=== PATIENT | female | born 1965 | race Hispanic/Latino ===

== ENCOUNTER 2017-12-19 11:02 | Emergency (ER) | payer MEDICAID ==
[2017-12-19] MEDS ORDERED: Sodium Chloride 0.9% 1,000 ML IV STA (12:01)
[2017-12-19 12:02] VITALS: RESP 18
--- NOTE | 2017-12-19 12:02 | ED PDOC ---
Arrival/HPI - General Chief Complaint: Fever Time Seen by Provider: 12/19/17 11:09 Historian: Patient, Spouse - History of Present Illness Narrative History of Present Illness (Text): you were treated in the ED today for hx of diabetes, hypertension, cholesterol, with dry cough and associated fever/difficulty breathing and chest pain with cough but otherwise without any nausea/vomiting/headache/dizziness/abdomen pain/ numbness/tingling/loss of limb function/pain with urination/travel/prior blood clots/prior cancer/hormonal use. 12/19/17 11:59 Past Medical History - Provider Review Nursing Documentation Reviewed: Yes - Travel History Have you recently traveled outside [place] w/in the past 3 mons?: No - Cardiac Hx Cardiac Disorders: Yes Hx Hypertension: Yes - Pulmonary Hx Respiratory Disorders: No - Neurological Hx Neurological Disorder: No - HEENT Hx HEENT Disorder: No - Renal Hx Renal Disorder: No - Endocrine/Metabolic Hx Endocrine Disorders: Yes Hx Diabetes Mellitus Type 2: Yes - Hematological/Oncological Hx Blood Disorders: No - Integumentary Hx Dermatological Disorder: No - Musculoskeletal/Rheumatological Hx Musculoskeletal Disorders: No - Gastrointestinal Hx Gastrointestinal Disorders: No - Genitourinary/Gynecological Hx Genitourinary Disorders: No - Psychiatric Hx Psychophysiologic Disorder: No Hx Substance Use: No - Surgical History Hx Cholecystectomy: Yes Family/Social History - Physician Review Nursing Documentation Reviewed: Yes Family/Social History: No Known Family HX Smoking Status: Never Smoked Hx Alcohol Use: No Hx Substance Use: No Allergies/Home Meds Allergies/Adverse Reactions: Allergies Penicillins Allergy (Verified 12/19/17 11:10) RASH Home Medications: Home Meds Medication Instructions Recorded Confirmed Colesevelam HCl [Welchol] 2 tab PO BID 12/19/17 12/19/17 Glipizide [Glipizide Xl] 5 mg PO BID 12/19/17 12/19/17 Lisinopril [Zestril] 2.5 mg PO DAILY 12/19/17 12/19/17 SITagliptin [Januvia] 50 mg PO DAILY 12/19/17 12/19/17 Valsartan/Hydrochlorothiazide 1 tab PO DAILY 12/19/17 12/19/17 [Valsartan-Hctz 160-25 mg Tab] Review of Systems - Review of Systems Constitutional: Fevers Eyes: Normal ENT: Normal Respiratory: SOB, Cough Cardiovascular: Chest Pain Gastrointestinal: Normal Genitourinary Female: Normal Musculoskeletal: Normal Skin: Normal Neurological: Normal Endocrine: Normal Hemo/Lymphatic: Normal Psychiatric: Normal Physical Exam Vital Signs Reviewed: Yes Vital Signs Temp Pulse Resp BP Pulse Ox 12/19/17 13:35 86 18 145/68 95 12/19/17 12:01 99.5 F 94 H 18 148/71 95 12/19/17 11:13 99.9 F H 101 H 16 152/79 H 93 L Temperature: Afebrile Blood Pressure: Hypertensive Pulse: Regular Appearance: Positive for: Well-Appearing, Non-Toxic, Comfortable Pain Distress: None Mental Status: Positive for: Alert and Oriented X 3 - Systems Exam Head: Present: Atraumatic, Normocephalic Pupils: Present: PERRL Extroacular Muscles: Present: EOMI Conjunctiva: Present: Normal Ears: Present: Normal Mouth: Present: Moist Mucous Membranes Pharnyx: Present: Normal Nose (External): Present: Atraumatic Nose (Internal): Present: Normal Inspection Neck: Present: Normal Range of Motion Respiratory/Chest: Present: Clear to Auscultation, Good Air Exchange Cardiovascular: Present: Regular Rate and Rhythm Abdomen: No: Tenderness, Distention, Normal Bowel Sounds, Peritoneal Signs, Rebound, Guarding, McBurney's Point Tender, Rovsing's Sign Present, Hernias, Feeding Tubes, Ostomy Tubes, Mass/Organomegaly, Scars, Other Back: Present: Normal Inspection Upper Extremity: Present: Normal Inspection Lower Extremity: Present: Normal Inspection Neurological: Present: GCS=15, CN II-XII Intact, Speech Normal, Motor Func Grossly Intact Skin: Present: Warm, Normal Color Psychiatric: Present: Alert, Oriented x 3, Normal Insight, Normal Concentration Medical Decision Making ED Course and Treatment: you were treated in the ED today for hx of diabetes, hypertension, cholesterol, with dry cough and associated fever/difficulty breathing and chest pain with cough but otherwise without any nausea/vomiting/headache/dizziness/abdomen pain/ numbness/tingling/loss of limb function/pain with urination/travel/prior blood clots/prior cancer/hormonal use. You were otherwise breathing easily, pink moist lips, smiling and talking with your easily, good strength/ sensation, alert/oriented, walking easily, clear lungs, no abdomen tenderness, no fever temp 99.9, mildly fast heart rate 101 and repeat 86, stable breathing rate 16, low oxygen level 93% room air and repeat 95% room air, elevated blood pressure 152/79 which we recommend repeat in 2-3 days primary care office to determine further treatment, you have blood tests no infection count 7, stable blood level hemoglobin 13/platelets 216, stable chemistry, mildly low potassium 3.3 replaced, glucose 298 elevated, liver AST 38 elevated, Liver bilirubin 1.5 elevated, heart blood test negative 0.01, urine test no acute sign of infection , urine test negative, lactic acid 1.3 normal, influenza negative, radiology chest xray no active disease, ECG normal sinus rhythm, aspirin, tylenol, prednisone, intravenous fluids, potassium, observation done in the ED with improvement, counselled to monitor symptoms and thus discharged home with . 1. Recommend albuterol as directed for reactive airway/coughing. 2. Recommend prednisone as directed for coughing/bronchitis relief. 3. Recommend follow-up primary care 2 days to review symptoms, referral to endocrine clinic for blood sugar control, referral to gastroenterology for elevated liver tests AST/liver bilirubin to ensure further care/no complications, referral to pulmonary to review your symptoms, referral to urology for ketones in urine to ensure no complications. 4. If any worsening pain, fever, chills, nausea, vomiting, difficulty breathing, numbness, loss of limb function, pain with urination or any medical condition then return to the ED. Reassessment Condition: Re-examined, Improved - Lab Interpretations Lab Results: 12/19/17 12:10 12/19/17 12:10 Lab Results 12/19/17 13:00: Urine Color Yellow, Urine Appearance Clear, Urine pH 6.0, Ur Specific [place] 1.020, Urine Protein Negative, Urine Glucose (UA) 500 H, Urine Ketones 15 H, Urine Blood Negative, Urine Nitrate Negative, Urine Bilirubin Negative, Urine Urobilinogen 0.2, Ur Leukocyte Esterase Negative 12/19/17 12:10: pO2 113 H, VBG pH 7.42, VBG pCO2 44.0, VBG HCO3 28.5 H, VBG Total CO2 29.9 H, VBG O2 Sat (Calc) 99.1 H, VBG Base Excess 3.4 H, VBG Potassium 3.3 L, Sodium 134.0, Chloride 99.0, Glucose 309 H, Lactate 1.3, FiO2 21.0, Venous Blood Potassium 3.3 L 12/19/17 12:10: Influenza Typ A,B (EIA) Negative for flu a/b 12/19/17 12:10: PT 13.1 H, INR 1.14 H, APTT 30.2 12/19/17 12:10: Sodium 136, Chloride 99, Potassium 3.3 L, Carbon Dioxide 26, Anion Gap 15, BUN 15, Creatinine 0.5 L, Est GFR ( Amer) > 60, Est GFR ( Non-Af Amer) > 60, Random Glucose 298 H, Calcium 9.2, Magnesium 1.7, Total Bilirubin 1.5 H, AST 38 H, ALT 39, Alkaline Phosphatase 67, Lactate Dehydrogenase 586, Total Creatine Kinase 125, Troponin I < 0.01, NT-Pro-B Natriuret Pep 88.0, Total Protein 7.9, Albumin 4.3, Globulin 3.6, Albumin/ Globulin Ratio 1.2 12/19/17 12:10: WBC 7.4, RBC 4.48, Hgb 13.3, Hct 38.9, MCV 86.8, MCH 29.7, MCHC 34.2, RDW 13.2, Plt Count 216, MPV 9.0, Gran % 64.0, Lymph % (Auto) 23.5, [place] % (Auto) 11.7 H, Eos % (Auto) 0.5 L, Baso % (Auto) 0.3, Gran # 4.70, Lymph # ( Auto) 1.7, [place] # (Auto) 0.9 H, Eos # (Auto) 0.0, Baso # (Auto) 0.02 I have reviewed the lab results: Yes - RAD Interpretation Narrative RAD Interpretations (Text): 12/19/17 13:53 Chest X-ray reviewed by radiologist, shows no active disease. Radiology Orders: 12/19/17 11:56 CHEST TWO VIEWS (PA/LAT) [RAD] Stat Documentation Analyst: Radiologist - Medication Orders Current Medication Orders: Discontinued Medications Acetaminophen (Tylenol 325mg Tab) 975 mg PO STAT STA Stop: 12/19/17 11:59 Last Admin: 12/19/17 12:51 Dose: 975 mg Aspirin (Aspirin) 325 mg PO STAT STA Stop: 12/19/17 11:57 Last Admin: 12/19/17 12:51 Dose: 325 mg Sodium Chloride (Sodium Chloride 0.9%) 1,000 mls @ 999 mls/hr IV .Q1H1M STA Stop: 12/19/17 13:01 Last Admin: 12/19/17 12:50 Dose: 999 mls/hr eMAR Start Stop Document 12/19/17 12:50 GMD (Rec: 12/19/17 12:50 GMD [id number]) Intravenous Solution Start Date 12/19/17 Start Time 12:50 End Date 12/19/17 End time 13:51 Total Infusion Time 61 Potassium Chloride (K-Dur 20 Meq Er Tab) 40 meq PO STAT STA Stop: 12/19/17 13:12 Prednisone (Prednisone Tab) 60 mg PO STAT ONE Stop: 12/19/17 11:59 Last Admin: 12/19/17 12:51 Dose: 60 mg Disposition/Present on Arrival - Present on Arrival Any Indicators Present on Arrival: No History of DVT/PE: No History of Uncontrolled Diabetes: Yes Urinary Catheter: No History of Decub. Ulcer: No History Surgical Site Infection Following: None - Disposition Have Diagnosis and Disposition been Completed?: Yes Diagnosis: Bronchitis Disposition: HOME/ ROUTINE Disposition Time: 14:10 Patient Plan: Discharge Condition: IMPROVED Discharge Instructions (ExitCare): Acute Bronchitis, Adult (DC) Additional Instructions: you were treated in the ED today for hx of diabetes, hypertension, cholesterol, with dry cough and associated fever/difficulty breathing and chest pain with cough but otherwise without any nausea/vomiting/headache/dizziness/abdomen pain/ numbness/tingling/loss of limb function/pain with urination/travel/prior blood clots/prior cancer/hormonal use. You were otherwise breathing easily, pink moist lips, smiling and talking with your easily, good strength/ sensation, alert/oriented, walking easily, clear lungs, no abdomen tenderness, no fever temp 99.9, mildly fast heart rate 101 and repeat 86, stable breathing rate 16, low oxygen level 93% room air and repeat 95% room air, elevated blood pressure 152/79 which we recommend repeat in 2-3 days primary care office to determine further treatment, you have blood tests no infection count 7, stable blood level hemoglobin 13/platelets 216, stable chemistry, mildly low potassium 3.3 replaced, glucose 298 elevated, liver AST 38 elevated, Liver bilirubin 1.5 elevated, heart blood test negative 0.01, urine test no acute sign of infection , urine test negative, lactic acid 1.3 normal, influenza negative, radiology chest xray no active disease, ECG normal sinus rhythm, aspirin, tylenol, prednisone, intravenous fluids, potassium, observation done in the ED with improvement, counselled to monitor symptoms and thus discharged home with . 1. Recommend albuterol as directed for reactive airway/coughing. 2. Recommend prednisone as directed for coughing/bronchitis relief. 3. Recommend follow-up primary care 2 days to review symptoms, referral to endocrine clinic for blood sugar control, referral to gastroenterology for elevated liver tests AST/liver bilirubin to ensure further care/no complications, referral to pulmonary to review your symptoms, referral to urology for ketones in urine to ensure no complications. 4. If any worsening pain, fever, chills, nausea, vomiting, difficulty breathing, numbness, loss of limb function, pain with urination or any medical condition then return to the ED. Prescriptions: Albuterol HFA [Ventolin HFA 90 mcg/actuation (8 g)] 2 puff IH [id number] PRN 5 Days #1 puff PRN Reason: coughing/reactive airway predniSONE [Prednisone] 20 mg PO DAILY 5 Days #5 tab Referrals: Rosalia Schaefer MD [Primary Care Provider] - Follow up with primary Forms: [employer] (Georgian)
[2017-12-19 12:34] LABS: BASO # 0.02 K/mm3 (0.0-2.0); BASO % 0.3 % (0.0-3.0); EOS % 0.5 % (1.5-5.0); GRAN # 4.7 (1.4-6.5); HEMOGLOBIN 13.3 g/dL (12.0-16.0); LYMPH # 1.7 (1.2-3.4); LYMPH % 23.5 % (22.0-35.0); MEAN CELL VOLUME 86.8 fl (80.0-105.0); MEAN CORPUSCULAR HEMOGLOBIN 29.7 pg (25.0-35.0); MEAN CORPUSCULAR HGB CONC 34.2 g/dl (31.0-37.0); MONO # 0.9 (0.1-0.6); MONO % 11.7 % (1.0-6.0); RBC 4.48 10^6/uL (3.5-6.1); RED CELL DISTRIBUTION WIDTH 13.2 % (11.5-14.5); WHITE BLOOD COUNT 7.4 10^3/ul (4.5-11.0)
[2017-12-19 12:36] LABS: VENOUS BLOOD GAS BASE EXCESS 3.4 mmol/L (0.0-2.0); VENOUS BLOOD GAS PO2 113 mm/Hg (30-55); VENOUS BLOOD PH 7.42 (7.32-7.43)
[2017-12-19 12:45] LABS: ALB/GLOB RATIO 1.2 (1.1-1.8); ALBUMIN 4.3 g/dL (3.0-4.8); ALT/SGPT 39 U/L (7-56); AST/SGOT 38 U/L (14-36); BLOOD UREA NITROGEN 15 mg/dL (7-21); CALCIUM 9.2 mg/dL (8.4-10.5); GFR AFRICAN-AMERICAN > 60; GFR NON-AFRICAN AMERICAN > 60
--- NOTE | 2017-12-19 12:45 | CARD ---
APPROVED REPORT EKG Measurement Heart [id number] <Conclusion> Normal sinus rhythm Possible Anterolateral infarct, age undetermined Abnormal ECG
[2017-12-19 12:49] LABS: INR 1.14 (0.93-1.08); PARTIAL THROMBOPLASTIN TIME 30.2 Seconds (25.1-36.5); PROTHROMBIN TIME 13.1 SECONDS (9.4-12.5)
[2017-12-19 12:56] LABS: TROPONIN I < 0.01 ng/mL
[2017-12-19] MEDS ORDERED: Potassium Chloride 20 mEq ER Tab PO STA (13:11)
[2017-12-19 13:15] LABS: URINE BILIRUBIN NEGATIVE (NEGATIVE); URINE BLOOD NEGATIVE (NEGATIVE); URINE GLUCOSE (UA) 500 mg/dL (NEGATIVE); URINE LEUKOCYTE ESTERASE NEGATIVE Leu/uL (NEGATIVE); URINE PROTEIN NEGATIVE mg/dL (<30 mg/dL); URINE UROBILINOGEN 0.2 E.U./dL (<1 E.U./dL)
[2017-12-19 13:16] LABS: URINE APPEARANCE CLEAR (CLEAR); URINE COLOR YELLOW (YELLOW)
--- NOTE | 2017-12-19 13:42 | RAD ---
HISTORY: Cough/fever. COMPARISON: No prior. TECHNIQUE: Chest PA and lateral FINDINGS: LUNGS: No active pulmonary disease. PLEURA: No significant pleural effusion identified. No pneumothorax apparent. CARDIOVASCULAR: No radiographic findings to suggest acute or significant cardiovascular disease. OSSEOUS STRUCTURES: No significant abnormalities. VISUALIZED UPPER ABDOMEN: Normal. OTHER FINDINGS: None. IMPRESSION: No active disease.
[2017-12-19 14:53] VITALS: BP 139/76; PULSE 78; TEMP 98.8; O2SAT 99
== END 2017-12-19 15:05 | disposition home or self-care (01) ==
LOC: MERGE 11:02 → ED 11:02
DX: J20.9 Acute bronchitis, unspecified (principal); I10 Essential (primary) hypertension; E11.9 Type 2 diabetes mellitus without complications
CPT/HCPCS: 71046; 80053; 81003; 82550; 82803; 83615; 83735; 83880; 84484; 85025; 85610; 85730; 87040; 87086; 87804; 93005; 96360; 99285; J7040

== ENCOUNTER 2018-08-03 10:53 | Emergency (ER) | payer MEDICAID ==
[2018-08-03] MEDS ORDERED: Sodium Chloride 0.9% 1,000 ML IV STA (11:28)
--- NOTE | 2018-08-03 12:23 | ED PDOC ---
Arrival/HPI - General Chief Complaint: GI Problem Time Seen by Provider: 08/03/18 11:10 Historian: Patient - History of Present Illness Narrative History of Present Illness (Text): 08/03/18 11:29 52 year old female, with past medical history of diabetes, hypertension, and hyperlipidemia, presents to the Emergency department complaining of fever, nausea, vomiting, diarrhea and abdominal pain since Friday evening. Patient reports intermittent fever since onset with a Tmax of 103.8 F. As per patient, vomiting has resolved however, diarrhea has been unimproved after taking Pepto Bismul and immodium. Patient reports gall stones in the past but denies any abdominal surgeries in the past. Patient denies any recent antibiotics use. Patient denies any other associated somatic complaints. Patient denies any urinary symptoms, changes in bowel movement, headache, dizziness, neck pain, back pain or any other complaints. Patient denies any recent changes in diet, recent travel or any sick contact. Time/Duration: < week Symptom Onset: Gradual Symptom Course: Unchanged Activities at Onset: Light Context: Home Past Medical History - Provider Review Nursing Documentation Reviewed: Yes - Reproductive Menopause: Yes - Cardiac Hx Cardiac Disorders: Yes Hx Hypertension: Yes - Pulmonary Hx Respiratory Disorders: No - Neurological Hx Neurological Disorder: No - HEENT Hx HEENT Disorder: No - Renal Hx Renal Disorder: No - Endocrine/Metabolic Hx Endocrine Disorders: Yes Hx Diabetes Mellitus Type 2: Yes - Hematological/Oncological Hx Blood Disorders: No - Integumentary Hx Dermatological Disorder: No - Musculoskeletal/Rheumatological Hx Musculoskeletal Disorders: No - Gastrointestinal Hx Gastrointestinal Disorders: No - Genitourinary/Gynecological Hx Genitourinary Disorders: No - Psychiatric Hx Psychophysiologic Disorder: No Hx Substance Use: No - Surgical History Hx Cholecystectomy: Yes Family/Social History - Physician Review Nursing Documentation Reviewed: Yes Family/Social History: Unknown Family HX Smoking Status: Never Smoked Hx Alcohol Use: No Hx Substance Use: No Allergies/Home Meds Allergies/Adverse Reactions: Allergies Penicillins Allergy (Verified 12/19/17 11:10) RASH Home Medications: Home Meds Medication Instructions Recorded Confirmed Colesevelam HCl [Welchol] 2 tab PO BID 12/19/17 08/03/18 Glipizide [Glipizide Xl] 5 mg PO BID 12/19/17 08/03/18 Losartan [Cozaar] 50 mg PO DAILY 08/03/18 08/03/18 SITagliptin [Januvia] 50 mg PO DAILY 08/03/18 08/03/18 Review of Systems - Physician Review All systems were reviewed & negative as marked: Yes - Review of Systems Constitutional: Fevers Respiratory: absent: SOB, Cough Cardiovascular: absent: Chest Pain Gastrointestinal: Abdominal Pain, Diarrhea, Nausea, Vomiting. absent: Appetite Changes, Hematochezia Genitourinary Female: absent: Dysuria, Hematuria, Urine Output Changes Musculoskeletal: absent: Back Pain, Neck Pain Neurological: absent: Headache, Dizziness Physical Exam Vital Signs Reviewed: Yes Vital Signs Temp Pulse Resp BP Pulse Ox 08/03/18 11:26 100.8 F H 96 H 16 157/82 H 98 Temperature: Febrile Blood Pressure: Normal Pulse: Regular Respiratory Rate: Normal Appearance: Positive for: Well-Appearing, Non-Toxic, Comfortable Pain Distress: None Mental Status: Positive for: Alert and Oriented X 3 - Systems Exam Head: Present: Atraumatic, Normocephalic Pupils: Present: PERRL Extroacular Muscles: Present: EOMI Conjunctiva: Present: Normal Mouth: Present: Moist Mucous Membranes Respiratory/Chest: Present: Clear to Auscultation, Good Air Exchange. No: Respiratory Distress, Accessory Muscle Use Cardiovascular: Present: Regular Rate and Rhythm, Normal S1, S2. No: Murmurs Abdomen: Present: Tenderness (minimal nonfocal abdominal tenderness). No: Distention, Peritoneal Signs Back: Present: Normal Inspection Upper Extremity: Present: Normal Inspection. No: Cyanosis, Edema Lower Extremity: Present: Normal Inspection. No: Edema Neurological: Present: GCS=15, CN II-XII Intact, Speech Normal Skin: Present: Warm, Dry, Normal Color. No: Rashes Psychiatric: Present: Alert, Oriented x 3, Normal Insight, Normal Concentration Medical Decision Making ED Course and Treatment: 08/03/18 11:29 Impression: 52 year old female presents to the Emergency department complaining of diarrhea and abdominal pain. r/o coltiis gastrits, gastroenteritis, Plan: -- Labs -- IV Fluids -- Tylenol -- Zofran -- Urinalysis -- Reassess and disposition Prior Visits: Notes and results from previous visits were reviewed. Progress Notes: 08/03/18 16:50 CT of Abdomen/Pelvis reviewed by radiologist, shows: There is mural thickening throughout the colon. The findings are most severe in the descending and sigmoid colon. Findings are consistent with colitis. 08/03/18 16:55 labs neg. noted oral thrush in oral pharnx. pt denies any h/o of immunocompromised, recent antibiotic use. states h/o of thrush. labs neg. states she feels well for dc. advise she will need close outpt fu and return precautions advised. - RAD Interpretation Data Analytics Chief Scientist: Radiologist - Medication Orders Current Medication Orders: Sodium Chloride (Sodium Chloride 0.9%) 1,000 mls @ 1,000 mls/hr IV .Q1H STA Stop: 08/03/18 12:27 Discontinued Medications Acetaminophen (Tylenol 325mg Tab) 975 mg PO STAT STA Stop: 08/03/18 11:31 Ondansetron HCl (Zofran Inj) 4 mg IVP STAT STA Stop: 08/03/18 11:29 - Scribe Statement The provider has reviewed the documentation as recorded by the Scribe Diane Vallejo. All medical record entries made by the Scribe were at my direction and personally dictated by me. I have reviewed the chart and agree that the record accurately reflects my personal performance of the history, physical exam, medical decision making, and the department course for this patient. I have also personally directed, reviewed, and agree with the discharge instructions and disposition. Disposition/Present on Arrival - Present on Arrival Any Indicators Present on Arrival: No History of DVT/PE: No History of Uncontrolled Diabetes: Yes Urinary Catheter: No History of Decub. Ulcer: No History Surgical Site Infection Following: None - Disposition Have Diagnosis and Disposition been Completed?: Yes Diagnosis: Colitis, Thrush Disposition: HOME/ ROUTINE Disposition Time: 14:00 Patient Problems: Current Active Problems Problem Status Onset Colitis Acute Thrush Acute Condition: STABLE Discharge Instructions (ExitCare): Thrush, Bacterial Gastroenteritis, Child (DC) Additional Instructions: follow up with your doctor/specialsit. return to er with worsening. you vida need further testing as an outpatient. please follow up with your doctor/clinic. Prescriptions: Ciprofloxacin [Cipro] 500 mg PO BID #20 tab metroNIDAZOLE [Flagyl] 500 mg PO TID #30 tab Nystatin [Nystatin Oral Susp] 5 ml PO QID #1 [facility] Referrals: [facility] [Outside] - Follow up with primary [facility] [Outside] - Follow up with primary Pascual Espinosa DO [Staff Provider] - Follow up with primary Forms: [email or web address] (Portuguese)
[2018-08-03 12:47] LABS: BASO # 0.03 K/mm3 (0.0-2.0); BASO % 0.4 % (0.0-3.0); GRAN # 4.85 (1.4-6.5); GRAN % 72.8 % (50.0-68.0); HEMOGLOBIN 14.6 g/dL (12.0-16.0); LYMPH # 1.2 (1.2-3.4); LYMPH % 17.8 % (22.0-35.0); MEAN CELL VOLUME 84.6 fl (80.0-105.0); MEAN CORPUSCULAR HEMOGLOBIN 29.3 pg (25.0-35.0); MEAN CORPUSCULAR HGB CONC 34.6 g/dl (31.0-37.0); MONO # 0.6 (0.1-0.6); RBC 4.99 10^6/uL (3.5-6.1); RED CELL DISTRIBUTION WIDTH 14.2 % (11.5-14.5); WHITE BLOOD COUNT 6.7 10^3/uL (4.5-11.0)
[2018-08-03 12:54] LABS: INR 1.15; PARTIAL THROMBOPLASTIN TIME 27.3 Seconds (25.1-36.5); PROTHROMBIN TIME 13.3 SECONDS (9.4-12.5)
[2018-08-03 12:57] LABS: ALB/GLOB RATIO 1.1 (1.1-1.8); ALBUMIN 4.1 g/dL (3.0-4.8); ALT/SGPT 25 U/L (7-56); AST/SGOT 30 U/L (14-36); BILIRUBIN,DIRECT 0.3 mg/dL (0.0-0.4); BLOOD UREA NITROGEN 10 mg/dL (7-21); CALCIUM 9.2 mg/dL (8.4-10.5); GFR NON-AFRICAN AMERICAN > 60; LIPASE 72 U/L (23-300)
[2018-08-03] MEDS ORDERED: Iohexol 350 MG/100 ML VIAL ONE (13:06)
[2018-08-03 13:54] VITALS: RESP 18; TEMP 98.9
[2018-08-03 15:05] LABS: PH,URINE 6.5 (4.7-8.0); URINE APPEARANCE CLEAR (CLEAR); URINE BILIRUBIN SMALL (NEGATIVE); URINE BLOOD TRACE-INTACT (NEGATIVE); URINE COLOR YELLOW (YELLOW); URINE GLUCOSE (UA) NEGATIVE (NEGATIVE); URINE LEUKOCYTE ESTERASE NEGATIVE Leu/uL (NEGATIVE); URINE PROTEIN TRACE mg/dL (<30 mg/dL); URINE UROBILINOGEN 0.2 E.U./dL (<1 E.U./dL)
[2018-08-03 15:08] LABS: HCG,QUALITATIVE URINE NEGATIVE (NEGATIVE)
[2018-08-03 15:14] LABS: URINE BACTERIA TRACE (NEG); URINE EPITHELIAL CELLS 0 - 2 /hpf (0-5); URINE RBC 0 - 2 /hpf (0-2); URINE WBC 0 - 2 /hpf (0-6)
--- NOTE | 2018-08-03 16:32 | CT ---
Date of service: 08/03/2018 PROCEDURE: CT Abdomen and Pelvis with contrast HISTORY: abd pain, nausea vomiting diarrhea, fever COMPARISON: None. TECHNIQUE: Contrast dose: 100 cc of Omni 350 Radiation dose: Total exam DLP = 974.37 mGy-cm. This CT exam was performed using one or more of the following dose reduction techniques: Automated exposure control, adjustment of the mA and/or kV according to patient size, and/or use of iterative reconstruction technique. FINDINGS: LOWER THORAX: Unremarkable. LIVER: Unremarkable. No gross lesion or ductal dilatation. GALLBLADDER AND BILE DUCTS: Gallbladder removed PANCREAS: Unremarkable. No gross lesion or ductal dilatation. SPLEEN: Unremarkable. ADRENALS: Unremarkable. No mass. KIDNEYS AND URETERS: Unremarkable. No hydronephrosis. No solid mass. VASCULATURE: Unremarkable. No aortic aneurysm. Mild aortic calcification BOWEL: There is mural thickening throughout the colon. The findings are most severe in the descending and sigmoid colon. Findings are consistent with colitis. APPENDIX: Normal appendix. PERITONEUM: Unremarkable. No free fluid. No free air. LYMPH NODES: Unremarkable. No enlarged lymph nodes. BLADDER: Unremarkable. REPRODUCTIVE: Unremarkable. BONES: No acute fracture. OTHER FINDINGS: None. IMPRESSION: There is mural thickening throughout the colon. The findings are most severe in the descending and sigmoid colon. Findings are consistent with colitis.
[2018-08-03] MEDS ORDERED: Ciprofloxacin 400mg/200ml D5W 400 MG/200 ML BAG IVPB STA (16:33)
[2018-08-03 22:06] VITALS: BP 120/68; PULSE 78; O2SAT 100
== END 2018-08-03 17:25 | disposition home or self-care (01) ==
LOC: ED 10:53
DX: K52.9 Noninfective gastroenteritis and colitis, unspecified (principal); B37.9 Candidiasis, unspecified; E11.9 Type 2 diabetes mellitus without complications; E78.5 Hyperlipidemia, unspecified; I10 Essential (primary) hypertension
CPT/HCPCS: 74177; 80053; 81001; 82248; 83690; 83735; 84703; 85025; 85610; 85730; 96374; 99285; J2405; J7030; Q9967